=== PATIENT | male | born 1955 | race Caucasian/White ===

== ENCOUNTER 2020-06-29 13:31 | Inpatient (IN) | payer MEDICAID ==
[~2020-06-29] VITALS: Ht 175.3 cm; Wt 115.7 kg
[~2020-06-29 13:31] MED LIST: ATEN50TA PO; ENAL20TA PO; FINA5TAB3 PO
[2020-06-29] MEDS ORDERED: SODIUM CHLORIDE 0.9% 1,000 ML IV ONE (14:27)
[2020-06-29 14:36] LABS: BASOPHILS % 0.6 % (0.0-2.0); EOSINOPHILS % 1.1 % (0.0-5.0); HEMOGLOBIN. 16.9 g/dL (14.0-18.0); LYMPHOCYTES % 22.3 % (20.0-50.0); MEAN PLATELET VOLUME 9.1 fl (7.4-10.4); MONOCYTES % 6.9 % (2.0-8.0); NEUTROPHILS % 69.1 % (40.0-76.0); PLATELET 243 x1000/uL (130-400); RED BLOOD CELL COUNT 5.43 mill/uL (4.7-6.1); RED CELL DISTRIBUTION WIDTH 13.4 % (11.6-14.6)
[2020-06-29 14:42] LABS: CHLORIDE 99 mEq/L (98-107)
[2020-06-29 14:50] LABS: BETA HYDROXYBUTYRATE 0.1 mMol/L (0.0-0.3)
[2020-06-29 14:59] LABS: BG BASE EXCESS -0.4 mmol/L (-2.0-2.0); BG CARBOXYHEMOGLOBIN 0.6 % (0.5-1.5); BG DEOXYHEMOGLOBIN 5.3 % (0.0-5.0); BG FRACTION INSPIRED OXYGEN 21; BG HCO3 ACT 24.4 mmol/L (22.0-26.0); BG METHEMOGLOBIN 0.3 % (0.0-1.5); BG OXYGEN SATURATION 94.7 % (92.0-98.5); BG OXYHEMOGLOBIN 93.8 % (94.0-97.0); BG PCO2 40.8 mmHg (35.0-45.0); BG PH 7.395 (7.350-7.450); BG PO2 75.5 mmHg (75.0-100.0); BG SAMPLE SITE RIGHT BRACHIAL; BG VENT MODE ROOM AIR
[2020-06-29] MEDS ORDERED: INSULIN REGULAR (HUMULIN R) 300UNITS/3ML IV ONE (15:30)
[2020-06-29] MEDS ORDERED: LEVO25TA2 PO (17:30)
[2020-06-29 20:00] VITALS: BP 138/70
[2020-06-29] MEDS ORDERED: [UNRECOGNIZED DRUG - OTHER] PO (20:49)
[2020-06-29] MEDS ORDERED: CLONIDINE 0.1MG TABLET PO PRN (21:45)
[2020-06-29] MEDS ORDERED: DEXTROSE 50% WATER 50ML SYRINGE IV PRN (21:45)
[2020-06-29 22:00] VITALS: BP 138/70
[2020-06-29] MEDS: BLOOD SUGAR DIAGNOSTIC STRIP TEST SCH (22:20)
[2020-06-29] MEDS: INSULIN LISPRO 100 UNITS/ML SUBCUT SCH (22:30)
[2020-06-30] VITALS: BP 113/59
[2020-06-30 04:00] VITALS: BP 129/49
[2020-06-30] MEDS ORDERED: ASPI-1079 PO (05:31)
[2020-06-30] MEDS: BLOOD SUGAR DIAGNOSTIC STRIP TEST SCH ×3 (06:28→17:07)
[2020-06-30] MEDS: INSULIN LISPRO 100 UNITS/ML SUBCUT SCH ×3 (06:39→18:06)
[2020-06-30] MEDS ORDERED: LEVOTHYROXINE SODIUM 125MCG TABLET PO SCH (06:45)
[2020-06-30 07:07] LABS: BASOPHILS % 0.6 % (0.0-2.0); EOSINOPHILS % 1.9 % (0.0-5.0); HEMATOCRIT. 47.7 % (42.0-52.0); MEAN CORPUSCULAR HEMOGLOBIN 30.4 pg (28.0-32.0); MEAN CORPUSCULAR VOLUME 90.8 fL (80.0-94.0); MEAN PLATELET VOLUME 9.2 fl (7.4-10.4); MONOCYTES % 7.5 % (2.0-8.0); PLATELET 222 x1000/uL (130-400); RED BLOOD CELL COUNT 5.26 mill/uL (4.7-6.1); RED CELL DISTRIBUTION WIDTH 13.7 % (11.6-14.6)
[2020-06-30 07:15] LABS: CHLORIDE 103 mEq/L (98-107)
[2020-06-30 07:28] LABS: HDL CHOLESTEROL 31 mg/dL (40-59); LDL CHOLESTEROL 86 mg/dL (5-100)
[2020-06-30 08:00] VITALS: BP 133/68
[2020-06-30] MEDS ORDERED: PNEUMOCOCCAL 23-VAL P-SAC VAC 0.5 ML IM ONE (08:00)
[2020-06-30] MEDS ORDERED: FINASTERIDE 5MG TABLET PO SCH (09:00)
[2020-06-30] MEDS ORDERED: LISINOPRIL 20MG TABLET PO SCH (09:00)
[2020-06-30 12:00] VITALS: BP 133/76
[2020-06-30 16:00] VITALS: BP 133/58
[2020-06-30] MEDS ORDERED: GLIPIZIDE 10MG TABLET PO SCH (16:30)
[2020-06-30] MEDS ORDERED: INSULIN GLARGINE UD 100 UNITS/ML SYR SUBCUT SCH (18:00)
[2020-06-30 20:07] VITALS: BP 144/88
[2020-06-30] MEDS ORDERED: ATORVASTATIN CALCIUM 10MG TABLET PO SCH (21:00)
== END 2020-06-30 20:48 | disposition home or self-care (01) | DRG 420 ==
LOC: ER 13:31 → EDBEDREQTM 17:52 → EDBEDREQ 17:52 → ENRESERV 19:59 → 5WST 20:33
PROVIDERS: ADMIT Internal Medicine; ATTEND Internal Medicine
DX: E11.00 Type 2 diabetes mellitus with hyperosmolarity without nonketotic hyperglycemic-hyperosmolar coma (NKHHC) (principal); E11.65 Type 2 diabetes mellitus with hyperglycemia; E66.9 Obesity, unspecified; E78.5 Hyperlipidemia, unspecified; F32.9 Major depressive disorder, single episode, unspecified; I10 Essential (primary) hypertension; E03.9 Hypothyroidism, unspecified; N40.1 Benign prostatic hyperplasia with lower urinary tract symptoms; Z53.20 Procedure and treatment not carried out because of patient's decision for unspecified reasons; Z79.899 Other long term (current) drug therapy; Z68.37 Body mass index [BMI] 37.0-37.9, adult; Z71.3 Dietary counseling and surveillance
CPT/HCPCS: 36415; 36600; 71045; 80048; 80053; 80061; 82010; 82375; 82805; 82962; 83036; 84443; 84484; 85025; 90732; 93005; 99285; J1815; J7030

== ENCOUNTER 2025-09-03 04:33 | Emergency (ER) | payer MEDICARE, MEDICAID ==
[~2025-09-03] VITALS: Ht 180.3 cm; Wt 89.0 kg
[~2025-09-03 04:33] MED LIST changes: +ASPI-1079 PO; +ATEN1TAB42 MT; -ATEN50TA PO; +ATOR10TA MT; +DOCU-138 MT; +ENAL-79 PO; -ENAL20TA PO; +ERTU5TAB PO; +FINA-37 PO; -FINA5TAB3 PO; +HYDR-4001 PO; +LEVO-65 MT; +LEVO150T8 MT; +METF-1150 MT; +METR-167 MT
[2025-09-03 05:04] VITALS: O2SAT 98
[2025-09-03 06:15] LABS: BASOPHILS % 0.5 % (0.0-2.0); EOSINOPHILS % 1.4 % (0.0-5.0); HEMATOCRIT. 49.8 % (42.0-52.0); HEMOGLOBIN. 16.4 g/dL (14.0-18.0); LYMPHOCYTES % 24.3 % (20.0-50.0); MEAN PLATELET VOLUME 8.2 fl (7.4-10.4); MONOCYTES % 9.4 % (2.0-8.0); NEUTROPHILS % 64.4 % (40.0-76.0); PLATELET 235 x1000/uL (130-400); RED BLOOD CELL COUNT 5.40 mill/uL (4.7-6.1); RED CELL DISTRIBUTION WIDTH 13.8 % (11.6-14.6)
[2025-09-03 06:39] LABS: CREATININE 0.8 mg/dL (0.6-1.3)
[2025-09-03 06:40] LABS: UREA NITROGEN BLOOD 17 mg/dL (9-23)
[2025-09-03 06:41] LABS: ASPARTATE AMINOTRANSFERASE 19 IU/L (<34)
[2025-09-03 06:42] LABS: BILIRUBIN TOTAL 1.0 mg/dL (0.1-1.0); PROTEIN TOTAL 7.1 g/dL (6.0-8.3)
[2025-09-03 06:59] LABS: CLARITY URINE CLEAR (CLEAR); COLOR URINE YELLOW (YELLOW); GLUCOSE URINE NEGATIVE (NEGATIVE); KETONES URINE NEGATIVE (NEGATIVE); LEUKOCYTE ESTERASE URINE NEGATIVE (NEGATIVE); NITRITE URINE NEGATIVE (NEGATIVE); OCCULT BLOOD URINE 2+ (NEGATIVE); PH URINE 5.5 (4.5-8.0); PROTEIN URINE NEGATIVE (NEGATIVE); SPECIFIC GRAVITY URINE 1.026 (1.005-1.030); UROBILINOGEN URINE 0.2 E.U./dL (0.2-1.0)
[2025-09-03 07:33] LABS: SQUAMOUS EPITHELIAL CELL URINE 1+ /lpf (RARE/1+)
[2025-09-03 07:36] VITALS: BP 128/81; PULSE 66; RESP 15; TEMP 36.7; O2SAT 98
[2025-09-03 07:37] LABS: BACTERIA URINE NONE SEEN
[2025-09-03 07:38] LABS: RBC URINE NONE SEEN /hpf (0-2); WBC URINE 0-2 /hpf (0-2)
== END 2025-09-03 07:38 | disposition home or self-care (01) ==
LOC: ER 04:33
DX: R31.9 Hematuria, unspecified (principal); I10 Essential (primary) hypertension; Z79.899 Other long term (current) drug therapy
CPT/HCPCS: 36415; 74176; 80053; 81003; 85025; 99284